=== PATIENT | female | born 1965 | race Two or more races ===

== ENCOUNTER 2016-12-31 13:48 | Emergency (ER) | payer OTHER ==
[2016-12-31 13:52] VITALS: BMI 26.0
--- NOTE | 2016-12-31 16:13 | PDOC ---
History of Present Illness - History of Present Illness Initial Comments: 12/31/16 17:33 Patient is a 51 year old female with significant medical hx of chronic urticaria who is presenting to the ED with two months of vaginal bleeding. Last week the patient was seen by [facility] when she was given a five day course of control intended to stop the bleeding. However, the patient finished the course and she states that her bleeding has continued. Patient also endorses some menstrual cramps with her bleeding. The patients last pelvic US was received on 12/10/16 ordered by [facility]. Denies any fever, chills, nausea, vomiting, diarrhea, dysuria, hematuria, back pain, or change in bowel habits. PMD: Rajani Tsai MD FRAME FIXER: Alina Doshi MD <Gely Rosas - Last Filed: 12/31/16 17:51> <John Salgado - Last Filed: 12/31/16 18:56> - General Chief Complaint: Vaginal Bleeding Stated Complaint: VAGINAL BLEEDING Time Seen by Provider: 12/31/16 16:09 Past History <Gely Rosas - Last Filed: 12/31/16 17:51> - Past Medical History Anemia: No Asthma: No Cancer: No Cardiac Disorders: No CVA: No COPD: No CHF: No Dementia: No Diabetes: No GI Disorders: No Disorders: No HTN: No Hypercholesterolemia: No Liver Disease: No Seizures: No Thyroid Disease: No Other medical history: CHRONIC URTICARIA - Surgical History Abdominal Surgery: No Appendectomy: No Cardiac Surgery: No Cholecystectomy: No Lung Surgery: No Neurologic Surgery: No Orthopedic Surgery: No - Family Disease History Family Disease History: Diabetes: Father, Heart Disease: Mother - Reproductive History Is Patient Now?: No - Psycho/Social/Smoking Cessation Hx Anxiety: No Suicidal Ideation: No Smoking Status: Yes (2-3 cigs/day) Smoking History: Current every day smoker Have you smoked in the past 12 months: Yes Number of Cigarettes Smoked Daily: 3 Information on smoking cessation initiated: No 'Breaking Loose' booklet given: 02/06/16 Hx Alcohol Use: No Drug/Substance Use Hx: No Substance Use Type: None <John Salgado - Last Filed: 12/31/16 18:56> - Past Medical History Allergies/Adverse Reactions: Allergies Allergy/AdvReac Type Severity Reaction Status Date / Time No Known Allergies Allergy Verified 12/31/16 13:53 Home Medications: Ambulatory Orders Medroxyprogesterone Acetate [Provera] 10 mg PO DAILY #14 tablet 12/31/16 Review of Systems - Review of Systems Comments:: 12/31/16 17:34 CONSTITUTIONAL: Absent: fever, chills, diaphoresis, generalized weakness, malaise, loss of appetite HEENT: Absent: rhinorrhea, nasal congestion, throat pain, throat swelling, difficulty swallowing, mouth swelling, ear pain, eye pain, visual changes CARDIOVASCULAR: Absent: chest pain, syncope, palpitations, irregular heart rate, lightheadedness , peripheral edema RESPIRATORY: Absent: cough, shortness of breath, dyspnea with exertion, orthopnea, wheezing, stridor, hemoptysis GASTROINTESTINAL: Present: abdominal cramping Absent: abdominal distension, nausea, vomiting, diarrhea, constipation, melena, hematochezia GENITOURINARY: Present: vaginal bleeding Absent: dysuria, frequency, urgency, hesitancy, hematuria, flank pain, genital pain MUSCULOSKELETAL: Absent: myalgia, arthralgia, joint swelling SKIN: Absent: rash, itching, pallor HEMATOLOGIC/IMMUNOLOGIC: Absent: easy bleeding, easy bruising, lymphadenopathy, frequent infections ENDOCRINE: Absent: unexplained weight gain, unexplained weight loss, heat intolerance, cold intolerance NEUROLOGIC: Absent: headache, focal weakness or paresthesia, dizziness, unsteady gait, seizure, mental status changes, bladder or bowel incontinence. PSYCHIATRIC: Absent: anxiety, depression, suicidal or homicidal ideation, hallucinations <Yelena Rosasa - Last Filed: 12/31/16 17:51> *Physical Exam - Vital Signs Last Vital Signs Temp Pulse Resp BP Pulse Ox 98.0 F 89 18 106/68 99 12/31/16 13:50 12/31/16 13:50 12/31/16 13:50 12/31/16 13:50 12/31/16 13:50 - Physical Exam Comments: 12/31/16 17:35 GENERAL: Well developed, well nourished. Awake and alert. No acute distress. HEENT: Normocephalic, atraumatic. PERRLA, EOMI. No conjunctival pallor. Sclera are non- icteric. Moist mucous membranes. Oropharynx is clear. NECK: Supple. Full ROM. No JVD. Carotid pulses 2+ and symmetric, without bruits. No thyromegaly. No lymphadenopathy. CARDIOVASCULAR: Regular rate and rhythm. No murmurs, rubs, or gallops. Distal pulses are 2+ and symmetric. PULMONARY: No evidence of respiratory distress. Lungs clear to auscultation bilaterally. No wheezing, rales or rhonchi. ABDOMINAL: Soft. Non-tender. Non-distended. No rebound or guarding. No organomegaly. Normoactive bowel sounds. MUSCULOSKELETAL: Normal range of motion at all joints. No bony deformities or tenderness. No CVA tenderness. EXTREMITIES: No cyanosis. No clubbing. No edema. No calf tenderness. SKIN: Warm and dry. Normal capillary refill. No rashes. No jaundice. NEUROLOGICAL: Alert, awake, appropriate. Cranial nerves 2-12 intact. Normal speech. Gait is normal without ataxia. PSYCHIATRIC: Cooperative. Good eye contact. Appropriate mood and affect. <Gely Rosas - Last Filed: 12/31/16 17:51> - Vital Signs Last Vital Signs Temp Pulse Resp BP Pulse Ox 98.0 F 89 18 106/68 99 12/31/16 13:50 12/31/16 13:50 12/31/16 13:50 12/31/16 13:50 12/31/16 13:50 <John Salgado - Last Filed: 12/31/16 18:56> ED Treatment Course - LABORATORY CBC & Chemistry Diagram: 12/31/16 16:38 12/31/16 16:38 - ADDITIONAL ORDERS Additional order review: Laboratory Results 12/31/16 12/31/16 16:38 16:30 INR 1.04 Sodium 139 Potassium 4.0 Chloride 105 Carbon Dioxide 25 Anion Gap 9 BUN 11 D Creatinine Y Creat Clearance w eGFR > 60 Random Glucose 87 Calcium 8.8 Total Bilirubin 0.3 D AST 18 D ALT 20 D Alkaline Phosphatase 74 Total Protein 7.3 Albumin 3.9 D 12/31/16 16:38 RBC 4.15 MCV 88.3 MCHC 33.0 RDW 14.2 MPV 9.0 D Neutrophils % 45.5 Lymphocytes % 44.5 H Monocytes % 6.4 Eosinophils % 2.3 Basophils % 1.3 - RADIOLOGY Radiograph Interpretation: 12/31/16 17:51 Bladder US Impression: Fibroid uterus, as described. Normal thickening of the endometrial stripe. Simple cyst/dominant follicle in the right ovary with a smaller cyst/follicle in the left, as described. Reported By: Deandra Friedman MD <Gely Rosas - Last Filed: 12/31/16 17:51> - LABORATORY CBC & Chemistry Diagram: 12/31/16 16:38 12/31/16 16:38 - RADIOLOGY Radiology Studies Ordered: Category Date Time Status PELVIC / BLADDER US [US] Stat Ultrasound 12/31/16 16:09 Ordered <John Salgado - Last Filed: 12/31/16 18:56> Medical Decision Making - Medical Decision Making 12/31/16 17:51 Will check H&H to see if she needs transfusion and help assess scope of bleeding then will contact [facility] physician when all results are available. <Gely Rosas - Last Filed: 12/31/16 17:51> *DC/Admit/Observation/Transfer - Attestations Scribe Attestion: 12/31/16 17:36 Documentation prepared by Gely Rosas, acting as medical billing manager for John Salgado MD. <Gely Rosas - Last Filed: 12/31/16 17:51> - Discharge Dispostion Admit: No - Attestations Physician Attestion: 12/31/16 16:12 I, Dr. John Salgado, attest that this document has been prepared under my direction and personally reviewed by me in its entirety. I further attest, that it accurately reflects all work, treatment, procedures and medical decision -making performed by me. <John Salgado - Last Filed: 12/31/16 18:56> Diagnosis at time of Disposition: Dysfunctional uterine bleeding, Uterine leiomyoma - Discharge Dispostion Disposition: HOME Condition at time of disposition: Good - Prescriptions Prescriptions: Medroxyprogesterone Acetate [Provera] 10 mg PO DAILY #14 tablet - Referrals Referrals: Rajani Stinson MD [Primary Care Provider] - Nisa Mendieta MD [Staff Physician] - - Patient Instructions Printed Discharge Instructions: DI for Vaginal Bleeding Additional Instructions: Lety - Your blood count is stable and I talked with your doctors. They want you to follow up in the office and take the provera for a full two weeks to try and stop the bleeding. You do not need a hysterectomy at this time. Best- Dr. John Salgado
[2016-12-31 17:10] LABS: INR 1.04 (0.82-1.09); PROTHROMBIN TIME (PATIENT) 11.5 SEC (9.98-11.88)
[2016-12-31 17:12] LABS: BASOPHIL 1.3 % (0-2.0); EOSINOPHIL 2.3 % (0-4.5); MCH 29.1 pg (25.7-33.7); MEAN CELL VOLUME 88.3 fl (80-96); NEUTROPHILS 45.5 % (42.8-82.8); PLATELET COUNT 369 K/MM3 (134-434); RDW 14.2 % (11.6-15.6)
[2016-12-31 17:26] LABS: ALBUMIN 3.9 g/dl (3.4-5.0); ALK PHOS 74 U/L (45-117); ANION GAP 9 (8-16); BILIRUBIN,TOTAL 0.3 mg/dL (0.2-1.0); CALCIUM 8.8 mg/dL (8.5-10.1); CO2 25 mmol/L (21-32); GLUCOSE,RANDOM 87 mg/dL (74-106); SGOT/AST 18 U/L (15-37); SGPT/ALT 20 U/L (12-78); TOT PROT 7.3 g/dl (6.4-8.2)
[2016-12-31 17:28] LABS: CREATININE 0.6 mg/dL (0.55-1.02)
[2016-12-31 18:25] VITALS: BP 122/77; PULSE 77; TEMP 98.7
[2016-12-31 18:30] LABS: URINE APPEARANCE CLEAR; URINE BILIRUBIN NEGATIVE (NEGATIVE); URINE COLOR RED; URINE GLUCOSE (UA) NEGATIVE (NEGATIVE); URINE KETONE NEGATIVE (NEGATIVE); URINE LEUK ESTERASE NEGATIVE (NEGATIVE); URINE NITRITE NEGATIVE (NEGATIVE); URINE UROBILINOGEN NEGATIVE E.U./dl (0.2-1.0)
[2016-12-31 18:37] LABS: URINE BLOOD 3+ (NEGATIVE); URINE PROTEIN 1+ (NEGATIVE)
[2016-12-31 22:45] LABS: URINE BACTERIA RARE /hpf (NEGATIVE); URINE RBC 60 /hpf (0-3); URINE WBC 22 (3-5)
== END 2016-12-31 19:16 | disposition home or self-care (01) ==
LOC: JER 13:48
DX: N93.8 Other specified abnormal uterine and vaginal bleeding (principal); D25.9 Leiomyoma of uterus, unspecified; N83.292 Other ovarian cyst, left side; N83.291 Other ovarian cyst, right side
CPT/HCPCS: 36415; 76856-TC; 80053; 81003; 81015; 82565; 84703; 85025; 85610; 86850; 86900; 86901; 99283-25

== ENCOUNTER 2019-07-21 20:49 | Emergency (ER) | payer OTHER ==
[2019-07-21 21:11] VITALS: BP 125/69; PULSE 77; TEMP 98.2; BMI 25.7
--- NOTE | 2019-07-21 21:48 | PDOC ---
History of Present Illness - General Chief Complaint: Shortness of Breath Stated Complaint: SHORTNESS OF BREATH Time Seen by Provider: 07/21/19 21:23 History Source: Patient Exam Limitations: Language Barrier ([employer] # [id number]) - History of Present Illness Initial Comments: 07/21/19 21:52 54F with a PMH of chronic urticaria and depression who presents to the ER for evaluation of chest pain. The patient states that she developed chest pain around 1900 today which was retrosternal, nonradiating, associated with shortness of breath, palpitations, and nausea without vomiting, changes in vision, numbness, tingling, and weakness. She admits to this pain occurring between 3am-5am every day for the last 3-4 days and she states that she can't sleep because of it. She has not taken any medications for it. Past History - Past Medical History Allergies/Adverse Reactions: Allergies Allergy/AdvReac Type Severity Reaction Status Date / Time No Known Allergies Allergy Verified 12/31/16 13:53 Home Medications: Ambulatory Orders Medroxyprogesterone Acetate [Provera] 10 mg PO DAILY #14 tablet 12/31/16 Anemia: No Asthma: No Cancer: No Cardiac Disorders: No CVA: No COPD: No CHF: No Dementia: No Diabetes: No GI Disorders: No Disorders: No HTN: No Hypercholesterolemia: No Liver Disease: No Seizures: No Thyroid Disease: No - Surgical History Abdominal Surgery: No Appendectomy: No Cardiac Surgery: No Cholecystectomy: No Lung Surgery: No Neurologic Surgery: No Orthopedic Surgery: No - Psycho Social/Smoking Cessation Hx Smoking Status: Yes (2-3 cigs/day) Smoking History: Former smoker Have you smoked in the past 12 months: No Number of Cigarettes Smoked Daily: 3 If you are a former smoker, when did you quit?: 2018 Information on smoking cessation initiated: No 'Breaking Loose' booklet given: 02/06/16 Hx Alcohol Use: No Drug/Substance Use Hx: No Substance Use Type: None Review of Systems - Review of Systems Able to Perform ROS?: Yes Comments:: 07/21/19 22:20 GENERAL/CONSTITUTIONAL: No fever or chills. No weakness. HEAD, EYES, EARS, NOSE AND THROAT: No change in vision. No ear pain or discharge. No sore throat. CARDIOVASCULAR: + for chest pain, palpitations, and lightheadedness. RESPIRATORY: + for SOB. No cough, wheezing, or hemoptysis. GASTROINTESTINAL: + for nausea. No abdominal pain, vomiting, diarrhea, or constipation. GENITOURINARY: No dysuria, frequency, hematuria, or change in urination. MUSCULOSKELETAL: No joint or muscle swelling or pain. No neck or back pain. SKIN: No rash or lesions. NEUROLOGIC: No headache, numbness, tingling, focal weakness, loss of consciousness, or change in strength/sensation. Is the patient limited Icelandic proficient: No *Physical Exam - Vital Signs Last Vital Signs Temp Pulse Resp BP Pulse Ox 98.2 F 77 19 125/69 99 07/21/19 21:07 07/21/19 21:07 07/21/19 21:07 07/21/19 21:07 07/21/19 21:07 - Physical Exam 07/21/19 22:21 GENERAL: Well developed, well nourished. Awake and alert. No acute distress. HEENT: Normocephalic, atraumatic. Hearing grossly normal. Moist mucous membranes. PERRLA, EOMI. No conjunctival pallor. Sclera are non-icteric. NECK: Supple. Full ROM. No JVD. CARDIOVASCULAR: Regular rate and rhythm. No murmurs, rubs, or gallops. PULMONARY: No evidence of respiratory distress. Lungs clear to auscultation bilaterally. No wheezing, rales or rhonchi. ABDOMINAL: Soft. Non-tender. Non-distended. No rebound or guarding. GENITOURINARY: No CVA tenderness bilaterally. MUSCULOSKELETAL: Normal range of motion at all joints. No bony deformities or tenderness. EXTREMITIES: No cyanosis. No clubbing. No edema. No calf tenderness or swelling. SKIN: Warm and dry. Normal capillary refill. No rashes. No jaundice. NEUROLOGICAL: Alert, awake, appropriate. Cranial nerves 2-12 grossly intact. Normal speech. Gait is normal without ataxia. PSYCHIATRIC: Cooperative. Good eye contact. Appropriate mood and affect. ED Treatment Course - LABORATORY CBC & Chemistry Diagram: 07/21/19 23:25 07/21/19 23:25 - RADIOLOGY Radiology Studies Ordered: Category Date Time Status CHEST PA & LAT [RAD] Stat Radiology 07/21/19 21:41 Ordered Medical Decision Making - Medical Decision Making 11/29/19 22:21 54F with a PMH of depression and prediabetes who presents to the ER with chest pain that has a concerning history but becomes less concerning as pt states this has happened intermittently over the last few days. Will obtain EKG, CXR, CBC, CMP, TSH, and troponin and reassess. Pt denies active chest pain. 07/22/19 00:16 Labs WNL including troponin. Will d/c with PCP f/u. Discharge - Discharge Information Problems reviewed: Yes Clinical Impression/Diagnosis: Atypical chest pain Condition: Good Disposition: HOME - Admission No - Follow up/Referral Referrals: Rajani Stinson MD [Primary Care Provider] - - Patient Discharge Instructions Patient Printed Discharge Instructions: DI for Atypical Chest Pain Additional Instructions: Your ER visit is not complete until your follow up with your primary care physician. Please follow up with your primary care physician in 1-2 days. Please return to the ER if you have any signs or symptoms of chest pain, shortness of breath, uncontrollable fever, chills, nausea, vomiting, numbness, tingling, or weakness in any part of your body, changes in vision, or slurred speech. Please return to the ER if symptoms persist, worsen, or new symptoms arise. - Post Discharge Activity
--- NOTE | 2019-07-21 21:52 | PDOC ---
Attending Attestation - Resident Resident Name: FranklinlisaDilan - ED Attending Attestation I have performed the following: I have examined & evaluated the patient, The case was reviewed & discussed with the resident, I agree w/resident's findings & plan - HPI HPI: 07/21/19 22:07 Pt comes with CP and palpitations that she feels in the middle of the night when she suddenly wakes from sleep. Pt lives alone in an apartment. There is no heat in the apt and she uses an electric space heater and she states that as a result she is not paying the rent Pt spent last night with a friend and today carlos went [employer] shopping, but last night she experienced the same symptoms. Pt wants to make sure that her heart is ok. She was a smoker, but she quit 1 year ago. 07/21/19 22:30 - Physicial Exam PE: 07/21/19 22:08 Agree with resident exam 07/22/19 05:40 Pt has no abd pain. She has no enlarged thyroid. Pt has no rashes Heart and lungs normal no flank pain Legs normal nruo exam normal Pt seems anxious. - Medical Decision Making 07/21/19 22:08 Pt has not had blood tests in over 2 years; we will check labs today. 07/21/19 22:32 Labs pending. 07/21/19 22:45 CXR normal 07/21/19 23:52 CBC normal 07/22/19 00:23 All labs including TSH normal Heart Score/ECG Review - ECG Intrepretation Rhythm: Regular Rhythm - P and AL Delta Wave(s) Present: No WPW: No - QRS Poor R Wave Progression: No Q Wave Present: No - ST and T Early Repolarization: No Non Specific ST-T Wave changes: No Flattened T Waves: No Prolonged Q-T Interval: No - ECG Impressions Normal ECG: Yes Non-specific ST Elevation: No Ischemic Changes: No Bradycardia: No Torsades nirali Pointes: No WPW: No
[2019-07-21 23:37] LABS: BASO % 1.3 % (0-2.0); EOS % 1.5 % (0-4.5); HEMATOCRIT 41.5 % (32.4-45.2); HEMOGLOBIN 13.9 GM/dL (10.7-15.3); LYMPH % 42.2 % (8-40); MCH 28.8 pg (25.7-33.7); MCHC 33.4 g/dl (32.0-36.0); MEAN CELL VOLUME 86.4 fl (80-96); MEAN PLT VOLUME 7.9 fl (7.5-11.1); MONO % 7.2 % (3.8-10.2); NEUT % 47.8 % (42.8-82.8); PLATELET COUNT 377 K/MM3 (134-434); RBC 4.81 M/mm3 (3.60-5.2); RDW 14.6 % (11.6-15.6); WHITE BLOOD COUNT 8.6 K/mm3 (4.0-10.0)
[2019-07-22 00:16] LABS: ALBUMIN 3.7 g/dl (3.4-5.0); ALK PHOS 72 U/L (45-117); ANION GAP 8 MMOL/L (8-16); BILIRUBIN,TOTAL 0.3 mg/dL (0.2-1); BLOOD UREA NITROGEN 10.2 mg/dL (7-18); CALCIUM 9.1 mg/dL (8.5-10.1); CHLORIDE 108 mmol/L (98-107); CO2 26 mmol/L (21-32); CREATININE 0.6 mg/dL (0.55-1.3); GLUCOSE,RANDOM 86 mg/dL (74-106); POTASSIUM 4.2 mmol/L (3.5-5.1); SGOT/AST 18 U/L (15-37); SGPT/ALT 22 U/L (13-61); SODIUM 142 mmol/L (136-145); TOT PROT 7.7 g/dl (6.4-8.2)
[2019-07-22 00:47] LABS: EPI CELLS 1.5 /HPF (0-5/HPF); HYALINE CASTS 1 /lpf (0-8); URINE APPEARANCE CLEAR; URINE BACTERIA 42.5 /hpf (NEGATIVE); URINE BILIRUBIN NEGATIVE (NEGATIVE); URINE COLOR YELLOW; URINE GLUCOSE (UA) NEGATIVE (NEGATIVE); URINE KETONE NEGATIVE (NEGATIVE); URINE LEUK ESTERASE NEGATIVE (NEGATIVE); URINE NITRITE NEGATIVE (NEGATIVE); URINE PROTEIN NEGATIVE (NEGATIVE); URINE RBC 21 /hpf (0-4); URINE UROBILINOGEN 0.2 mg/dL (0.2-1.0); URINE WBC 1 /hpf (0-5)
--- NOTE | 2019-07-24 11:34 | EKG ---
Test Reason : Blood Pressure : / mmHG Vent. Rate : 068 BPM Atrial Rate : 068 BPM P-R Int : 166 ms QRS Dur : 082 ms QT Int : 406 ms P-R-T Axes : 054 -10 029 degrees QTc Int : 431 ms NORMAL SINUS RHYTHM POSSIBLE LEFT ATRIAL ENLARGEMENT BORDERLINE ECG WHEN COMPARED WITH ECG OF 30-JUL-2010 13:39, NO SIGNIFICANT CHANGE WAS FOUND Confirmed by CONI MOLINA MD ([id number]) on 07/24/2019 11:33:51 AM Referred By: Confirmed By:CONI MOLINA MD
--- NOTE | 2019-07-25 09:24 | EKG ---
Test Reason : Blood Pressure : / mmHG Vent. Rate : 076 BPM Atrial Rate : 076 BPM P-R Int : 164 ms QRS Dur : 080 ms QT Int : 392 ms P-R-T Axes : 053 -12 029 degrees QTc Int : 441 ms NORMAL SINUS RHYTHM POSSIBLE LEFT ATRIAL ENLARGEMENT BORDERLINE ECG WHEN COMPARED WITH ECG OF 30-JUL-2010 13:39, NO SIGNIFICANT CHANGE WAS FOUND Confirmed by MD Baljinder, Shon ([id number]) on 07/25/2019 9:24:14 AM Referred By: Confirmed By:Shon Gale MD
== END 2019-07-22 01:02 | disposition home or self-care (01) ==
LOC: JER 20:49
DX: R07.9 Chest pain, unspecified (principal); L50.8 Other urticaria; F32.9 Major depressive disorder, single episode, unspecified; R73.03 Prediabetes; Z87.891 Personal history of nicotine dependence
CPT/HCPCS: 36415; 71046-TC-FY; 80053; 81003; 82550; 84443; 84484; 84703; 85025; 87086; 93005; 93010; 99283-25